=== PATIENT | male | born 1945 | race Two or more races ===

== ENCOUNTER 2019-04-04 19:10 | Emergency (ER) | payer OTHER ==
[~2019-04-04] VITALS: Ht 165.1 cm; Wt 63.5 kg
[2019-04-04] MEDS ORDERED: COZAAR50 MG PO (20:16)
[2019-04-04] MEDS ORDERED: MOTION SICKNESS25 M2 PO (21:58)
== END 2019-04-04 22:07 | disposition home or self-care (01) ==
LOC: ER 19:10
DX: R42 Dizziness and giddiness (principal)

== ENCOUNTER 2021-08-17 22:36 | Emergency (ER) | payer OTHER ==
[~2021-08-17] VITALS: Ht 165.1 cm; Wt 61.2 kg
[~2021-08-17 22:36] MED LIST: COZAAR50 MG PO; MOTION SICKNESS25 M2 PO
[2021-08-18] MEDS ORDERED: VITAMIN C WIT1000 MG PO (01:12)
[2021-08-18] MEDS ORDERED: ACETAMINOPHEN650 M2 PO (01:12)
[2021-08-18] MEDS ORDERED: MUCINEX DM ER1 EAC1 PO (01:12)
== END 2021-08-18 01:33 | disposition home or self-care (01) ==
LOC: ER 22:36
DX: U07.1 COVID-19 (principal); J06.9 Acute upper respiratory infection, unspecified; B34.9 Viral infection, unspecified; J02.9 Acute pharyngitis, unspecified; R05.9 Cough, unspecified